=== PATIENT | female | born 1995 | race Hispanic/Latino ===

== ENCOUNTER 2017-10-18 09:03 | Emergency (ER) | payer BC ==
[2017-10-18] MEDS ORDERED: LIDOCAINE 1%-EPI 1:100,000 20 ML VIAL IJ ONE (09:34)
== END 2017-10-18 10:18 | disposition home or self-care (01) ==
LOC: EDH 09:03
DX: L02.214 Cutaneous abscess of groin (principal)
CPT/HCPCS: 10060; 99283; J3490

== ENCOUNTER 2017-10-20 13:27 | Emergency (ER) | payer BC | END 2017-10-20 14:36 | disposition home or self-care (01) | LOC: EDH 13:27 | DX: Z48.00 Encounter for change or removal of nonsurgical wound dressing (principal) ==

== ENCOUNTER 2018-08-20 02:37 | Emergency (ER) | payer BC, OTHER ==
[2018-08-20] MEDS ORDERED: IBUPROFEN 600 MG TABLET ONE (02:56)
== END 2018-08-20 03:41 | disposition home or self-care (01) ==
LOC: EDH 02:37
DX: S63.91XA Sprain of unspecified part of right wrist and hand, initial encounter (principal); S60.221A Contusion of right hand, initial encounter; X58.XXXA Exposure to other specified factors, initial encounter; Y93.89 Activity, other specified; Y92.89 Other specified places as the place of occurrence of the external cause; Y99.0 Civilian activity done for income or pay
CPT/HCPCS: 73130

== ENCOUNTER 2018-10-12 20:55 | Emergency (ER) | payer OTHER ==
[2018-10-12 21:40] LABS: BASOPHILS % (AUTO) 0.2 % (0.0-5.0); EOSINOPHILS % (AUTO) 1.6 % (0.0-8.0); HEMATOCRIT 38.3 % (36-48); LYMPHOCYTES % (AUTO) 35.7 % (21.0-51.0); MEAN CORPUSCULAR HEMOGLOBIN 27.6 pg (27.0-33.0); MEAN CORPUSCULAR HGB CONC 32.6 g/dL (32.0-36.0); MEAN CORPUSCULAR VOLUME 84.9 fL (80-100); MONOCYTES % (AUTO) 7.6 % (3.0-13.0); NEUTROPHILS % (AUTO) 54.9 % (40.0-77.0); PLATELET COUNT (AUTO) 325 K/uL (130-400); RED BLOOD CELL COUNT(AUTO) 4.51 MIL/uL (4.00-5.50); RED CELL DISTRIBUTION WIDTH 13.6 % (11.0-15.5); WHITE BLOOD COUNT (AUTO) 11.5 K/uL (4.8-10.8)
[2018-10-12 21:56] LABS: CREATININE 0.8 mg/dL (0.5-1.5); POTASSIUM 3.4 mmol/L (3.5-5.1)
[2018-10-12 21:57] LABS: INR 0.95 (0.85-1.15); PARTIAL THROMBOPLASTIN TIME 27.9 SEC (26.3-35.5)
[2018-10-12 22:00] LABS: ALBUMIN 3.5 g/dL (3.5-5.0); BILIRUBIN,TOTAL 0.2 mg/dL (0.2-1.0); TOTAL PROTEIN, SERUM 7.8 g/dL (6.0-8.3)
[2018-10-12] MEDS ORDERED: CYCLOBENZAPRINE HCL 10 MG TABLET ONE (22:59)
[2018-10-12] MEDS ORDERED: TRAMADOL HCL 50 MG TABLET ONE (22:59)
[2018-10-12 23:24] LABS: APPEARANCE,URINE Clear (CLEAR); BILIRUBIN,URINE Negative (NEGATIVE); COLOR,URINE Yellow (YELLOW); GLUCOSE, URINE (UA) Negative (NEGATIVE); KETONES,URINE Negative (NEGATIVE); LEUKOCYTE ESTERASE ,URINE Moderate (NEGATIVE); NITRATE,URINE Positive (NEGATIVE); OCCULT BLOOD,URINE Large (NEGATIVE); PH,URINE 6.5 (5.0-8.0); PROTEIN,URINE Negative (NEGATIVE); UROBILINOGEN,URINE 0.2 mg/dL (0.2-1.0)
[2018-10-12 23:41] LABS: AMORPHOUS SEDIMENT,UR Moderate /LPF (None Seen); BACTERIA,URINE Moderate /HPF (None Seen); SQUAMOUS EPITHELIAL CELL,UR Few /HPF (0-2)
== END 2018-10-12 23:32 | disposition home or self-care (01) ==
LOC: EDH 20:55
DX: M54.2 Cervicalgia (principal); R51 Headache; M54.5 Low back pain; V49.49XA Driver injured in collision with other motor vehicles in traffic accident, initial encounter; Y93.89 Activity, other specified; Y92.89 Other specified places as the place of occurrence of the external cause; Y99.8 Other external cause status
CPT/HCPCS: 36415; 71045; 72040; 80053; 81001; 82150; 82550; 83690; 84484; 84703; 85025; 85610; 85730; 93005

== ENCOUNTER 2020-03-09 18:36 | Emergency (ER) | payer BC, OTHER ==
[2020-03-09] MEDS ORDERED: SODIUM CHLORIDE 0.9% 1000ML 1,000 ML IV ONE (18:38)
[2020-03-09 19:34] LABS: APPEARANCE,URINE Clear (CLEAR); BILIRUBIN,URINE Negative (NEGATIVE); COLOR,URINE Dark Yellow (YELLOW); GLUCOSE, URINE (UA) Negative (NEGATIVE); KETONES,URINE Negative (NEGATIVE); LEUKOCYTE ESTERASE ,URINE Small (NEGATIVE); NITRATE,URINE Negative (NEGATIVE); OCCULT BLOOD,URINE Large (NEGATIVE); PROTEIN,URINE Negative (NEGATIVE)
[2020-03-09 19:37] LABS: HCG,QUAL RESULT NEGATIVE (NEGATIVE)
[2020-03-09 19:39] LABS: BASOPHILS % (AUTO) 0.2 % (0.0-5.0); EOSINOPHILS % (AUTO) 0.3 % (0.0-8.0); HEMATOCRIT 39.4 % (36-48); LYMPHOCYTES % (AUTO) 24.4 % (21.0-51.0); MEAN CORPUSCULAR HEMOGLOBIN 25.9 pg (27.0-33.0); MEAN CORPUSCULAR HGB CONC 31.5 g/dL (32.0-36.0); MEAN CORPUSCULAR VOLUME 82.3 fL (79-99); MONOCYTES % (AUTO) 7.5 % (3.0-13.0); NEUTROPHILS % (AUTO) 67.1 % (40.0-77.0); PLATELET COUNT (AUTO) 355 K/uL (130-400); RED BLOOD CELL COUNT(AUTO) 4.79 MIL/uL (4.00-5.50); RED CELL DISTRIBUTION WIDTH 14.3 % (11.0-15.5); WHITE BLOOD COUNT (AUTO) 20.3 K/uL (4.8-10.8)
[2020-03-09] MEDS ORDERED: KETOROLAC TROMETHAMINE 30MG/ML ONE (19:39)
[2020-03-09 19:43] LABS: BACTERIA,URINE Few /HPF (None Seen)
[2020-03-09 19:44] LABS: MUCUS,URINE Few LPF (None Seen); SQUAMOUS EPITHELIAL CELL,UR Few /HPF (0-2)
[2020-03-09 19:51] LABS: CREATININE 0.8 mg/dL (0.5-1.5); POTASSIUM 3.2 mmol/L (3.5-5.1)
[2020-03-09 19:56] LABS: ALBUMIN 3.5 g/dL (3.5-5.0); BILIRUBIN,TOTAL 0.7 mg/dL (0.2-1.0); TOTAL PROTEIN, SERUM 8.8 g/dL (6.0-8.3)
[2020-03-09] MEDS ORDERED: CEFTRIAXONE SODIUM 2 GM VIAL ONE (20:01)
== END 2020-03-09 22:10 | disposition home or self-care (01) ==
LOC: EDH 18:37
DX: K61.0 Anal abscess (principal); L03.317 Cellulitis of buttock
CPT/HCPCS: 36415; 46050; 74176; 80053; 81001; 81025; 83605; 85025; 96361; 96374; 96375; 99284; J0696; J1885; J7030

== ENCOUNTER 2021-11-29 09:45 | Inpatient (IN) | payer BC, OTHER ==
[~2021-11-29] VITALS: Ht 144.8 cm; Wt 110.2 kg
[2021-11-29 11:15] LABS: HEMATOCRIT 33.8 % (36-48); MEAN CORPUSCULAR HEMOGLOBIN 22.1 pg (27.0-33.0); MEAN CORPUSCULAR HGB CONC 30.2 g/dL (32.0-36.0); MEAN CORPUSCULAR VOLUME 73.3 fL (79-99); PLATELET COUNT (AUTO) 275 K/uL (130-400); RED BLOOD CELL COUNT(AUTO) 4.61 MIL/uL (4.00-5.50); RED CELL DISTRIBUTION WIDTH 17.2 % (11.0-15.5); WHITE BLOOD COUNT (AUTO) 10.1 K/uL (4.8-10.8)
[2021-11-29] MEDS ORDERED: AMPICILLIN 2GM+NS 100ML 100 ML IV ONE (11:23)
[2021-11-29] MEDS ORDERED: ROPIVACAINE 0.2% 100ML VIAL 100 ML EP PRN (11:30)
[2021-11-29] MEDS ORDERED: PROMETHAZINE HCL 25 MG/ML 1ML AMPULE IM PRN (11:30)
[2021-11-29] MEDS ORDERED: LACTATED RINGERS 500 ML 500 ML IV PRN (11:30)
[2021-11-29] MEDS: OXYTOCIN-LR 20 UNITS/1000 ML 1,000 ML IV SCH (11:30)
[2021-11-29] MEDS ORDERED: OXYTOCIN-LR 20 UNITS/1000 ML 1,000 ML IV SCH (11:30)
[2021-11-29] MEDS ORDERED: EPHEDRINE SULFATE 50 MG/ML AMPULE IVP PRN (11:30)
[2021-11-29] MEDS ORDERED: NALOXONE HCL 0.4 MG/1 ML ML IV PRN (11:30)
[2021-11-29] MEDS ORDERED: AMPICILLIN 2GM+NS 100ML 100 ML IV SCH (11:30)
[2021-11-29] MEDS ORDERED: MEPERIDINE-PF 50 MG/ML SYG IVP PRN (11:30)
[2021-11-29] MEDS ORDERED: LACTATED RINGERS 1000ML 1,000 ML IV PRN (11:30)
[2021-11-29 11:34] LABS: APPEARANCE,URINE CLEAR (CLEAR); BILIRUBIN,URINE NEGATIVE (NEGATIVE); COLOR,URINE YELLOW (YELLOW); GLUCOSE, URINE (UA) NEGATIVE (NEGATIVE); KETONES,URINE 15 mg/dL (NEGATIVE); LEUKOCYTE ESTERASE ,URINE LARGE (NEGATIVE); NITRATE,URINE NEGATIVE (NEGATIVE); OCCULT BLOOD,URINE NEGATIVE (NEGATIVE); PROTEIN,URINE NEGATIVE (NEGATIVE); UROBILINOGEN,URINE 0.2 mg/dL (0.2-1.0)
[2021-11-29 11:45] LABS: BACTERIA,URINE Few /HPF (None Seen); RBC,URINE 0-1 /HPF (0-1); SQUAMOUS EPITHELIAL CELL,UR Few /HPF (0-2)
[2021-11-29 13:07] LABS: AMPHET/METH SCREEN,URINE NEGATIVE (NEGATIVE); BARBITURATE SCREEN, URINE NEGATIVE (NEGATIVE); BENZODIAZEPINES SCREEN,URINE NEGATIVE (NEGATIVE); CANNABINOID SCREEN,URINE NEGATIVE (NEGATIVE); COCAINE SCREEN,URINE NEGATIVE (NEGATIVE); OPIATE SCREEN,URINE NEGATIVE (NEGATIVE); PHENCYCLIDINE SCREEN,URINE NEGATIVE (NEGATIVE)
[2021-11-29] MEDS ORDERED: FENTANYL CITRATE PF 50 MCG/1 ML 2ML VIAL ONE (13:58)
[2021-11-29] MEDS: AMPICILLIN 1GM+NS 50ML 50 ML IV SCH ×3 (15:30→23:30)
[2021-11-29] MEDS ORDERED: CEFAZOLIN SODIUM 1 GM VIAL ONE (21:18)
[2021-11-29] MEDS ORDERED: MISOPROSTOL 200 MCG TABLET ONE (21:32)
[2021-11-29] MEDS ORDERED: ONDANSETRON 4MG INJ ONE (21:51)
[2021-11-29] MEDS ORDERED: DEXAMETHASONE SOD PHOSPHATE 10MG/ML 1ML VIAL ONE (21:51)
[2021-11-29] MEDS ORDERED: EPHEDRINE SULFATE 50 MG/ML AMPULE ONE (21:51)
[2021-11-29] MEDS ORDERED: OXYTOCIN 10 UNIT/1ML 10ML VIAL ONE (21:51)
[2021-11-29] MEDS ORDERED: MORPHINE PF 100MG/10ML AMP IV ONE (21:52)
[2021-11-29] MEDS ORDERED: CEFAZOLIN SODIUM 1 GM VIAL IVP PRN (22:00)
[2021-11-29] MEDS ORDERED: LACTATED RINGERS 1000ML 1,000 ML IV SCH (22:00)
[2021-11-29] MEDS ORDERED: MEPERIDINE-PF 50 MG/ML SYG ONE (22:12)
[2021-11-29] MEDS ORDERED: KETAMINE HCL 100 MG/ML 5ML VIAL IJ ONE (22:16)
[2021-11-29] MEDS ORDERED: MIDAZOLAM HCL 1 MG/ML 2ML VIAL ONE (22:17)
[2021-11-30] VITALS (8 sets, daily range): BP systolic 102–138; BP diastolic 49–66
[2021-11-30] MEDS: OXYTOCIN-LR 20 UNITS/1000 ML 1,000 ML IV SCH (00:24)
[2021-11-30] MEDS ORDERED: DEXTROSE 5 %-0.45 % NACL 1,000 ML IV PRN (01:00)
[2021-11-30] MEDS ORDERED: PROMETHAZINE HCL 25 MG/ML 1ML AMPULE IM PRN (01:00)
[2021-11-30] MEDS ORDERED: 0.9%NACL 10ML VIAL IVP PRN (01:00)
[2021-11-30] MEDS ORDERED: MEPERIDINE-PF 75 MG/ML SYG IM PRN (01:00)
[2021-11-30] MEDS ORDERED: OXYTOCIN-LR 20 UNITS/1000 ML 1,000 ML IV PRN (01:00)
[2021-11-30] MEDS ORDERED: PREN-154 PO (03:17)
[2021-11-30] MEDS: AMPICILLIN 1GM+NS 50ML 50 ML IV SCH ×2 (03:30→05:03)
[2021-11-30 06:04] LABS: HEMATOCRIT 24.8 % (36-48); MEAN CORPUSCULAR HEMOGLOBIN 22.5 pg (27.0-33.0); MEAN CORPUSCULAR HGB CONC 30.6 g/dL (32.0-36.0); MEAN CORPUSCULAR VOLUME 73.4 fL (79-99); RED BLOOD CELL COUNT(AUTO) 3.38 MIL/uL (4.00-5.50); RED CELL DISTRIBUTION WIDTH 17.5 % (11.0-15.5)
[2021-11-30 08:36] LABS: RAPID PLASMA REAGIN NONREACTIVE (NONREACTIVE)
[2021-11-30] MEDS ORDERED: ACETAMINOPHEN WITH CODEINE 1 TAB TAB PO PRN (09:00)
[2021-11-30] MEDS ORDERED: ACETAMINOPHEN 500 MG TABLET PO PRN (09:00)
[2021-11-30] MEDS ORDERED: HYDROCODONE/ACETAMINOPHEN 5/325 MG TAB PO PRN (09:00)
[2021-11-30] MEDS ORDERED: BISACODYL 10 MG SUPP.RECT RC PRN (09:00)
[2021-11-30] MEDS: SIMETHICONE 80 MG TAB.CHEW PO PRN ×3 (09:27→20:21)
[2021-11-30] MEDS: DOCUSATE SODIUM 100 MG CAP PO SCH ×2 (09:27→20:21)
[2021-11-30] MEDS: ACETAMINOPHEN WITH CODEINE 1 TAB TAB PO PRN ×2 (09:51→16:22)
[2021-11-30] MEDS: IBUPROFEN 600 MG TABLET PO PRN ×2 (11:57→20:22)
[2021-11-30] MEDS ORDERED: AMMONIA 1 EA AMP IH ONE (15:39)
[2021-12-01 03:26] VITALS: BP 119/65
[2021-12-01 07:50] VITALS: BP 114/59
[2021-12-01] MEDS: DOCUSATE SODIUM 100 MG CAP PO SCH (07:56)
[2021-12-01] MEDS: SIMETHICONE 80 MG TAB.CHEW PO PRN (07:59)
[2021-12-01 11:43] VITALS: BP 121/70
[2021-12-01] MEDS: IBUPROFEN 600 MG TABLET PO PRN (13:24)
[2021-12-01] MEDS ORDERED: ACET-2079 PO (13:48)
[2021-12-01] MEDS ORDERED: IBUP-2070 PO (13:48)
[2021-12-01] MEDS ORDERED: FERR-72 PO (13:49)
== END 2021-12-01 14:55 | disposition home or self-care (01) | DRG 788 ==
LOC: EDH 09:45 → OBSVTOIN 09:46 → LDH 09:46 → WSH 11-30 01:25
PROVIDERS: ADMIT Internal Medicine; ATTEND Internal Medicine
PROC: 10D00Z1 Extraction of Products of Conception, Low, Open Approach (ICD-10-PCS; principal; 2021-11-29 21:40)
DX: O62.2 Other uterine inertia (principal); Z3A.38 38 weeks gestation of pregnancy; Z37.0 Single live birth; O69.81X0 Labor and delivery complicated by cord around neck, without compression, not applicable or unspecified
CPT/HCPCS: 36415; 59510; 76805; 80305; 81001; 85027; 86592; 86701; 86850; 86900; 86901; 87088; 87340; 87390; A4314; A4344; G0378; J0290; J0690; J1100; J2175; J2250; J2274; J2405; J2550; J2590; J2795; J3010; J3490; J7120

== ENCOUNTER 2022-05-21 18:35 | Emergency (ER) | payer OTHER ==
[~2022-05-21] VITALS: Ht 144.8 cm; Wt 83.9 kg
[~2022-05-21 18:35] MED LIST: ACET-2079 PO; FERR-72 PO; IBUP-2070 PO; PREN-154 PO
[2022-05-21 18:51] VITALS: BP 138/71
[2022-05-21] MEDS ORDERED: ONDANSETRON 4MG INJ ONE (19:06)
[2022-05-21] MEDS ORDERED: ACETAMINOPHEN 325 MG TAB ONE (19:06)
[2022-05-21 19:33] LABS: APPEARANCE,URINE CLOUDY (CLEAR); BILIRUBIN,URINE NEGATIVE (NEGATIVE); COLOR,URINE YELLOW (YELLOW); GLUCOSE, URINE (UA) NEGATIVE (NEGATIVE); KETONES,URINE 5 mg/dL (NEGATIVE); LEUKOCYTE ESTERASE ,URINE 75 Leu/uL (NEGATIVE); NITRATE,URINE NEGATIVE (NEGATIVE); OCCULT BLOOD,URINE NEGATIVE (NEGATIVE); PH,URINE 5.5 (5.0-8.0); PROTEIN,URINE 30 mg/dL (NEGATIVE); UROBILINOGEN,URINE 0.2 mg/dL (0.2-1.0)
[2022-05-21 19:37] LABS: HCG,QUALITATIVE URINE NEGATIVE (NEGATIVE)
[2022-05-21 19:39] LABS: BACTERIA,URINE RARE /HPF (None Seen); MUCUS,URINE MOD LPF (None Seen); SQUAMOUS EPITHELIAL CELL,UR MOD /HPF (0-2)
[2022-05-21 19:45] LABS: BASOPHILS % (AUTO) 0.2 % (0.0-5.0); EOSINOPHILS % (AUTO) 0.7 % (0.0-8.0); HEMATOCRIT 31.1 % (36-48); MEAN CORPUSCULAR HEMOGLOBIN 18.8 pg (27.0-33.0); MEAN CORPUSCULAR HGB CONC 28.3 g/dL (32.0-36.0); MEAN CORPUSCULAR VOLUME 66.6 fL (79-99); MONOCYTES % (AUTO) 6.4 % (3.0-13.0); NEUTROPHILS % (AUTO) 75.3 % (40.0-77.0); PLATELET COUNT (AUTO) 326 K/uL (130-400); RED BLOOD CELL COUNT(AUTO) 4.67 MIL/uL (4.00-5.50); RED CELL DISTRIBUTION WIDTH 18.3 % (11.0-15.5); WHITE BLOOD COUNT (AUTO) 14.4 K/uL (4.8-10.8)
[2022-05-21 19:57] LABS: CREATININE 0.7 mg/dL (0.5-1.5); POTASSIUM 3.4 mmol/L (3.5-5.1)
[2022-05-21 20:02] LABS: ALBUMIN 3.6 g/dL (3.5-5.0); TOTAL PROTEIN, SERUM 8.4 g/dL (6.0-8.3)
[2022-05-21 20:49] LABS: AMPHET/METH SCREEN,URINE NEGATIVE (NEGATIVE); BARBITURATE SCREEN, URINE NEGATIVE (NEGATIVE); BENZODIAZEPINES SCREEN,URINE NEGATIVE (NEGATIVE); CANNABINOID SCREEN,URINE NEGATIVE (NEGATIVE); COCAINE SCREEN,URINE NEGATIVE (NEGATIVE); OPIATE SCREEN,URINE NEGATIVE (NEGATIVE); PHENCYCLIDINE SCREEN,URINE NEGATIVE (NEGATIVE)
== END 2022-05-21 21:42 | disposition home or self-care (01) ==
LOC: EDH 18:35
DX: R56.9 Unspecified convulsions (principal); Z79.1 Long term (current) use of non-steroidal anti-inflammatories (NSAID)
CPT/HCPCS: 99284; 70450; 80053; 80305; 85025; 87088; 81025; 36415; 72125; 81001; 96374 ×2; J2405

== ENCOUNTER 2023-09-14 01:30 | Emergency (ER) | payer BC, OTHER ==
[~2023-09-14] VITALS: Ht 147.3 cm; Wt 103.9 kg
[2023-09-14 01:49] LABS: APPEARANCE,URINE CLOUDY (CLEAR); BILIRUBIN,URINE NEGATIVE (NEGATIVE); COLOR,URINE LIGHT-YELLOW (YELLOW); GLUCOSE, URINE (UA) NEGATIVE (NEGATIVE); KETONES,URINE NEGATIVE (NEGATIVE); LEUKOCYTE ESTERASE ,URINE 500 Leu/uL (NEGATIVE); NITRATE,URINE NEGATIVE (NEGATIVE); OCCULT BLOOD,URINE NEGATIVE (NEGATIVE); PH,URINE 5.5 (5.0-8.0); PROTEIN,URINE NEGATIVE (NEGATIVE); UROBILINOGEN,URINE 0.2 mg/dL (0.2-1.0)
[2023-09-14 01:59] LABS: BASOPHILS # (AUTO) 0.04 K/uL (0.00-0.20); BASOPHILS % (AUTO) 0.2 % (0.0-5.0); EOSINOPHILS # (AUTO) 0.15 K/uL (0.00-0.70); EOSINOPHILS % (AUTO) 0.9 % (0.0-8.0); HEMATOCRIT 36.6 % (36-48); IMMATURE GRANULOCYTE ABSOLUTE 0.09 K/uL (0-1); LYMPHOCYTES # (AUTO) 4.8 K/uL (1.0-4.8); LYMPHOCYTES % (AUTO) 27.6 % (21.0-51.0); MEAN CORPUSCULAR HGB CONC 31.1 g/dL (32.0-36.0); MEAN CORPUSCULAR VOLUME 73.8 fL (79-99); MONOCYTES % (AUTO) 5.9 % (3.0-13.0); NEUTROPHILS # (AUTO) 11.4 K/uL (1.8-7.7); NEUTROPHILS % (AUTO) 64.9 % (40.0-77.0); PLATELET COUNT (AUTO) 372 K/uL (130-400); RED BLOOD CELL COUNT(AUTO) 4.96 MIL/uL (4.00-5.50); WHITE BLOOD COUNT (AUTO) 17.5 K/uL (4.8-10.8)
[2023-09-14 02:11] LABS: ADD UA MICROSCOPIC YES
[2023-09-14 02:12] LABS: CREATININE 0.8 mg/dL (0.5-1.0); POTASSIUM 3.4 mmol/L (3.5-5.1)
[2023-09-14 02:13] LABS: BACTERIA,URINE MOD /HPF (None Seen); MUCUS,URINE RARE LPF (None Seen); SQUAMOUS EPITHELIAL CELL,UR MANY /HPF (0-2)
[2023-09-14 02:14] LABS: INR 0.94 (0.85-1.15); PROTHROMBIN TIME 11.1 SEC (9.6-11.6)
[2023-09-14 02:15] LABS: PARTIAL THROMBOPLASTIN TIME 28.5 SEC (26.3-35.5)
[2023-09-14 02:17] LABS: ALBUMIN 3.6 g/dL (3.5-5.0); BILIRUBIN,TOTAL 0.5 mg/dL (0.2-1.0); TOTAL PROTEIN, SERUM 8.7 g/dL (6.0-8.3)
[2023-09-14] MEDS ORDERED: IOHEXOL 350 MG/ML 100ML INFUS..BTL IV ONE (04:42)
[2023-09-14] MEDS: 0.9%NACL 1000ML 1,000 ML IV ONE (05:03)
[2023-09-14] MEDS: CEFTRIAXONE 2GM VIAL IVPB STA (05:03)
[2023-09-14] MEDS: KETOROLAC 15MG/ML VIAL (15MG/ML) IV ONE (05:33)
[2023-09-14 06:33] VITALS: BP 100/49; PULSE 100; RESP 18; O2SAT 97
[2023-09-14] MEDS ORDERED: CEPH500B PO (06:39)
== END 2023-09-14 06:54 | disposition home or self-care (01) ==
LOC: EDH 01:30
DX: N39.0 Urinary tract infection, site not specified (principal)
CPT/HCPCS: 99284; 74177; 96365; 96375; 82550; 84484; 80053; 85025; 85610; 85730; 87040 ×2; 87088; 83605; 81001; 81025; 36415; J7030; J0696; J1885; Q9967